=== PATIENT | male | born 1975 | race Caucasian/White ===

== ENCOUNTER 2021-10-22 12:22 | Emergency (ER) | payer OTHER ==
[2021-10-22 12:37] VITALS: BP 152/97; PULSE 84; RESP 16; TEMP 99.1; BMI 28.5
[2021-10-22] MEDS ORDERED: LIDOCAINE HCL 1%, 10 MG/ML (20ML VIAL) ONE (12:56)
== END 2021-10-22 13:55 | disposition home or self-care (01) ==
LOC: FER 12:22
DX: S63.259A Unspecified dislocation of unspecified finger, initial encounter (principal)
CPT/HCPCS: 73140-TC-RT-FY; 99284-25